=== PATIENT | male | born 1985 | race Caucasian/White ===

== ENCOUNTER 2017-03-17 17:56 | Emergency (ER) | payer SELFPAY ==
[2017-03-17 18:01] VITALS: BP 147/75; PULSE 51; TEMP 97.8; BMI 28.1
[2017-03-17] MEDS ORDERED: IBUPROFEN 600 MG TABLET (FP) PO ONE (19:01)
--- NOTE | 2017-03-17 19:01 | PDOC ---
History of Present Illness - General Chief Complaint: Pain Stated Complaint: PAIN Time Seen by Provider: 03/17/17 18:42 History Source: Patient Exam Limitations: No Limitations - History of Present Illness Initial Comments: 03/17/17 18:56 31 yr male no medical history with c/o pain to the left side of chest after getting hit to the area with a soccer ball 2 days ago. Pt denies getting knocked down , no loc. Pt did not take any meds for pain. Pt states pain is worse with moving his trunk. Occurred: reports: other (2 days ago ) Pain Location: reports: chest (left side) Loss of Consciousness: no loss of consciousness Past History - Past Medical History Allergies/Adverse Reactions: Allergies Allergy/AdvReac Type Severity Reaction Status Date / Time No Known Allergies Allergy Verified 03/17/17 17:58 Home Medications: Ambulatory Orders No Home Medications 0 dose .ROUTE UTDICT 05/22/12 Ibuprofen [Motrin -] 800 mg PO TID #30 tablet 07/26/15 Ibuprofen 800 mg PO TID PRN #20 tablet 03/17/17 Other medical history: NONE - Psycho/Social/Smoking Cessation Hx Anxiety: No Suicidal Ideation: No Smoking Status: No Smoking History: Never smoked Have you smoked in the past 12 months: No Number of Cigarettes Smoked Daily: 0 Information on smoking cessation initiated: No Hx Alcohol Use: No Drug/Substance Use Hx: No Substance Use Type: None Trauma Specific PMHX - Complaint Specific PMHX Arthritis: No Back Injury: No Neck Injury: No Hx Sacro Iliac Joint Dysfunction: No Review of Systems - Review of Systems Able to Perform ROS?: Yes Is the patient limited Northern Irish proficient: No Constitutional: No: Symptoms Reported HEENTM: No: Symptoms Reported Respiratory: No: Symptoms reported Cardiac (ROS): Yes: See HPI. No: Symptoms Reported ABD/GI: No: Symptoms Reported Musculoskeletal: Yes: Symptoms Reported *Physical Exam - Vital Signs Last Vital Signs Temp Pulse Resp BP Pulse Ox 97.8 F 51 L 18 147/75 100 03/17/17 17:59 03/17/17 17:59 03/17/17 17:59 03/17/17 17:59 03/17/17 17:59 - Physical Exam General Appearance: Yes: Nourished, Appropriately Dressed HEENT: positive: EOMI, OFELIA, Normal ENT Inspection, Normal Voice, Pharynx Normal Neck: positive: Supple. negative: Tender Respiratory/Chest: positive: Chest Tender (ttp left anterior chest wall ), Lungs Clear, Normal Breath Sounds. negative: Decreased Breath Sounds, Crackles , Rales Cardiovascular: positive: Regular Rhythm, Regular Rate Musculoskeletal: positive: Normal Inspection Extremity: positive: Normal Capillary Refill, Normal Inspection, Normal Range of Motion Integumentary: positive: Normal Color, Dry, Warm. negative: Swelling, Ecchymosis, Bruising Neurologic: positive: cuffing machine operator II-XII NML intact, Fully Oriented, Alert, Normal Mood/ Affect, Normal Response, Motor Strength 5/5 Heart Score/ECG Review - ECG Intrepretation Rhythm: Regular Rhythm (NSR signed by ER attending dya bustamante) ED Treatment Course - RADIOLOGY Radiology Studies Ordered: Category Date Time Status CHEST PA & LAT [RAD] Stat Radiology 03/17/17 18:49 Ordered Medical Decision Making - Medical Decision Making 03/17/17 19:00 cc: chest wall trauma 2 days ago no SOB vitals stable EKG done NSR pain is reproducable to touch and with movement will get CXR, motrin for pain 03/17/17 19:47 CXR is normal, pt states the pain has resolved after motrin . will dc home with naprosyn for pain strict follow up in 48hrs with PMD . *DC/Admit/Observation/Transfer Diagnosis at time of Disposition: Contusion, chest wall Qualifiers: Encounter type: initial encounter Laterality: left Qualified Code(s): S20.212A - Contusion of left front wall of thorax, initial encounter - Discharge Dispostion Disposition: HOME Condition at time of disposition: Good - Prescriptions Prescriptions: Ibuprofen 800 mg PO TID PRN #20 tablet PRN Reason: Pain - Referrals Referrals: [facility] [Provider Group] - Patient Instructions Additional Instructions: apply warm compresses to the area of pain every 3hrs for 15-20 minutes take ibuprofen 600-800mg every 6hrs for pain follow with your doctor in 48hrs return to ER for any shortness of breath, chest pain trouble breathing or any other concerns Aplique compresas calientes en el azam de dolor cada 3 h nazario 15-20 minutos [place] ibuprofeno 600-800mg cada 6 horas para el dolor Siga con villegas mdico en 48 horas Regrese a urgencias por cualquier dificultad para respirar, dolor en el pecho dificultad para respirar o cualquier otra preocupacin
[2017-03-17] MEDS ORDERED: IBUPROFEN 400 MG TABLET (FP) PO ONE (19:06)
--- NOTE | 2017-03-18 13:03 | EKG ---
Test Reason : Blood Pressure : / mmHG Vent. Rate : 055 BPM Atrial Rate : 055 BPM P-R Int : 174 ms QRS Dur : 090 ms QT Int : 440 ms P-R-T Axes : 018 063 037 degrees QTc Int : 420 ms SINUS BRADYCARDIA OTHERWISE NORMAL ECG NO PREVIOUS ECGS AVAILABLE REPEAT EKG IF CLINICALLY INDICATED Confirmed by DAYANA TAYLOR MD ([id number]) on 03/18/2017 1:03:01 PM Referred By: Confirmed By:DAYANA TAYLOR MD
== END 2017-03-17 20:04 | disposition home or self-care (01) ==
LOC: JERFT 17:56
DX: S20.212A Contusion of left front wall of thorax, initial encounter (principal); W21.02XA Struck by soccer ball, initial encounter; Y93.66 Activity, soccer; Y92.89 Other specified places as the place of occurrence of the external cause
CPT/HCPCS: 71020-TC; 93005; 93010; 99281-25

== ENCOUNTER 2018-10-10 23:51 | Emergency (ER) | payer SELFPAY ==
[2018-10-11 00:05] VITALS: BP 161/90; PULSE 96; TEMP 98.3; BMI 29.8
[2018-10-11] MEDS ORDERED: LIDOCAINE HCL 2% (20ML MULTI-DOSE VIAL) NR ONE (01:15)
[2018-10-11] MEDS ORDERED: CEFAZOLIN 1 GM/D5W 1 GM/50 ML BAG IVPB ONE (02:45)
[2018-10-11] MEDS ORDERED: CEFAZOLIN 1 GM/D5W 1 GM/50 ML BAG ONE (03:06)
--- NOTE | 2018-10-11 03:09 | PDOC ---
History of Present Illness - General Chief Complaint: Laceration Stated Complaint: INJURY TO MOUTH Time Seen by Provider: 10/11/18 00:11 History Source: Patient Exam Limitations: No Limitations - History of Present Illness Initial Comments: 10/11/18 03:04 33-year-old male presents to the emergency department with his complaining of an inner lip laceration after getting elbow while playing soccer 3-4 hours ago. Patient denies loss of consciousness, headache, dizziness, lightheadedness , nausea/vomiting, fever/chills, facial pains, dental pain, neck pain/stiffness , back pains, extremity numbness or tingling sensation. Patient states he applied direct pressure immediately after his injury. Patient states mild bleeding. Tetanus updated last year. Patient denies any dental pain Past History - Past Medical History Allergies/Adverse Reactions: Allergies Allergy/AdvReac Type Severity Reaction Status Date / Time No Known Allergies Allergy Verified 03/17/17 17:58 Home Medications: Ambulatory Orders No Home Medications 0 dose .ROUTE UTDICT 05/22/12 Ibuprofen [Motrin -] 800 mg PO TID #30 tablet 07/26/15 Ibuprofen 800 mg PO TID PRN #20 tablet 03/17/17 - Suicide/Smoking/Psychosocial Hx Smoking Status: No Smoking History: Unknown if ever smoked Have you smoked in the past 12 months: No Number of Cigarettes Smoked Daily: 0 Hx Alcohol Use: No Drug/Substance Use Hx: No Substance Use Type: None Review of Systems - Review of Systems Able to Perform ROS?: Yes Comments:: 10/11/18 03:05 CONSTITUTIONAL: Absent: fever, chills, diaphoresis, generalized weakness, malaise, loss of appetite HEENT: Inner lower lip lac Absent: rhinorrhea, nasal congestion, throat pain, throat swelling, difficulty swallowing, mouth swelling, ear pain, eye pain, visual Changes CARDIOVASCULAR: Absent: chest pain, loss of consciousness, palpitations, irregular heart rate, peripheral edema RESPIRATORY: Absent: cough, shortness of breath, dyspnea with exertion, orthopnea, wheezing, stridor, hemoptysis GASTROINTESTINAL: Absent: abdominal pain, abdominal distension, nausea, vomiting, diarrhea, constipation, melena, hematochezia GENITOURINARY: Absent: dysuria, frequency, urgency, hesitancy, hematuria, flank pain, genital pain MUSCULOSKELETAL: Absent: myalgia, arthralgia, joint swelling SKIN: Absent: rash, itching, pallor HEMATOLOGIC/IMMUNOLOGIC: Absent: easy bleeding, easy bruising, lymphadenopathy, frequent infections ENDOCRINE: Absent: unexplained weight gain, unexplained weight loss, heat intolerance, cold intolerance NEUROLOGIC: Absent: headache, focal weakness or paresthesias, dizziness, unsteady gait, seizure, mental status changes, bladder or bowel incontinence PSYCHIATRIC: Absent: anxiety, depression, suicidal or homicidal ideation, hallucinations. Is the patient limited Gabonese proficient: No *Physical Exam - Vital Signs Last Vital Signs Temp Pulse Resp BP Pulse Ox 98.3 F 96 H 20 161/90 98 10/11/18 00:01 10/11/18 00:01 10/11/18 00:01 10/11/18 00:01 10/11/18 00:01 - Physical Exam Comments: 10/11/18 03:05 GENERAL: Well developed, well nourished. Awake and alert. No acute distress. HEENT: Upper and lower teeth palpated without pain/percussion without pain Inner lower lip lac 4cm jagged stellar lip lac/full thickness .05cm outer region just 3cm inferior to the vermilion border Normocephalic, atraumatic. PERRLA, EOMI. No conjunctival pallor. Sclera are non- icteric. Moist mucous membranes. Oropharynx is clear. NECK: Supple. Full ROM. No JVD. Carotid pulses 2+ and symmetric, without bruits. No thyromegaly. No lymphadenopathy. CARDIOVASCULAR: Regular rate and rhythm. No murmurs, rubs, or gallops. Distal pulses are 2+ and symmetric. PULMONARY: No evidence of respiratory distress. Lungs clear to auscultation bilaterally. No wheezing, rales or rhonchi. ABDOMINAL: Soft. Non-tender. Non-distended. No rebound or guarding. No organomegaly. Normoactive bowel sounds. MUSCULOSKELETAL Normal range of motion at all joints. No bony deformities or tenderness. No CVA tenderness. EXTREMITIES: No cyanosis. No clubbing. No edema. No calf tenderness. SKIN: Warm and dry. Normal capillary refill. No rashes. No jaundice. NEUROLOGICAL: Alert, awake, appropriate. Cranial nerves 2-12 intact. No deficits to light touch and temperature in face, upper extremities and lower extremities. No motor deficits in the in face, upper extremities and lower extremities. Normoreflexic in the upper and lower extremities. Normal speech. Toes are down- going bilaterally. Gait is normal without ataxia. PSYCHIATRIC: Cooperative. Good eye contact. Appropriate mood and affect. Procedure: Inner lower lip lac 4cm jagged stellar lip lac/full thickness betadine prep 5cc 1% lidocaine NS irrigation (8) 3.0 chromic gut simple interrupted .05cm outer region just 3cm inferior to the vermilion border Betadine prep 1.5 mL 1% lidocaine Copious normal saline irrigation (5.0 nylon) Bacitracin bandair 10/11/18 03:08 Moderate Sedation - Procedure Monitoring Vital Signs: Procedure Monitoring Vital Signs Temperature 98.3 F 10/11/18 00:01 Pulse Rate 96 H 10/11/18 00:01 Respiratory Rate 20 10/11/18 00:01 Blood Pressure 161/90 10/11/18 00:01 O2 Sat by Pulse Oximetry (%) 98 10/11/18 00:01 *DC/Admit/Observation/Transfer Diagnosis at time of Disposition: Laceration of lip, complicated Qualifiers: Encounter type: initial encounter Qualified Code(s): S01.511A - Laceration without foreign body of lip, initial encounter - Discharge Dispostion Disposition: HOME Condition at time of disposition: Stable Decision to Admit order: No - Referrals Referrals: Vj Butler MD [Staff Physician] - - Patient Instructions Printed Discharge Instructions: DI for Laceration Repair Additional Instructions: Keep the incision clean and dry for 24 hours. After 24 hours, you may allow the soap and water to rinse off your incision. Avoid direct pressure of the water to the incision. Pat the incision dry with a clean clothe. Apply a small amount of bacitracin onto the incision. Cover the incision loosely with a bandaid. Take tylenol/motrin as needed for pain. Follow up with your physician or the ER in 48 hours for a wound check. Return to the ER if you notice red streaks, increase redness/swelling/severe pain to the incision. It is important that you do not use a straw An infection will cause increase redness, swelling, pain, drainage. If this is the case, your to report directly to the emergency department. Mantenga la incisin limpia y seca nazario 24 horas. Despus de 24 horas, puede permitir que el jabn y el agua enjuagues la incisin. Evite la presin directa del agua a la incisin. Seque la incisin con un clavo limpio. Aplicar lee pequea cantidad de bacitracina sobre la incisin. Cubra la incisin libremente con un bandaid. Amber Tylenol/Motrin segn sea necesario para el dolor. Seguimiento con villegas mdico o el ER en 48 horas para un chequeo de la herida. Regrese a la ER si observa cleve reese, aumente el enrojecimiento/hinchazn/ dolor mell a la incisin. Es importante que no uses lee pajita Lee infeccin causar aumento de enrojecimiento, hinchazn, dolor, drenaje. Si alex es el paris, villegas para informar directamente al Departamento de emergencias. Print Language: VIETNAMESE - Post Discharge Activity
== END 2018-10-11 03:21 | disposition home or self-care (01) ==
LOC: JER 23:51
PROC: 3E03329 Introduction of Other Anti-infective into Peripheral Vein, Percutaneous Approach (ICD-10-PCS; principal; 2018-10-10)
PROC: 0CQ1XZZ Repair Lower Lip, External Approach (ICD-10-PCS; 2018-10-10)
DX: S01.511A Laceration without foreign body of lip, initial encounter (principal); W50.0XXA Accidental hit or strike by another person, initial encounter; Y93.66 Activity, soccer; Y92.322 Soccer field as the place of occurrence of the external cause; Y99.8 Other external cause status
CPT/HCPCS: 99283-25

== ENCOUNTER 2018-10-13 10:18 | Emergency (ER) | payer SELFPAY ==
[2018-10-13 10:45] VITALS: BP 132/79; PULSE 65; TEMP 98.7; BMI 29.0
--- NOTE | 2018-10-13 11:22 | PDOC ---
History of Present Illness - General Chief Complaint: Wound Stated Complaint: STITCHES REMOVAL Time Seen by Provider: 10/13/18 11:07 - History of Present Illness Initial Comments: 10/13/18 11:17 33-year-old male presents for evaluation of a wound check on his lower lip from sutures that were placed 2 days ago. He's been on antibiotics and has been feeling better he has minimal discomfort around the area of his lower lip with the wound was sutured. Past History - Past Medical History Allergies/Adverse Reactions: Allergies Allergy/AdvReac Type Severity Reaction Status Date / Time No Known Allergies Allergy Verified 10/11/18 03:11 Home Medications: Ambulatory Orders Amoxicillin/Potassium Clav [Augmentin 875-125 Tablet] 1 each PO BID #10 tablet 10/11/18 COPD: No - Immunization History Immunization Up to Date: Yes - Suicide/Smoking/Psychosocial Hx Smoking Status: No Smoking History: Never smoked Have you smoked in the past 12 months: No Number of Cigarettes Smoked Daily: 0 Hx Alcohol Use: No Drug/Substance Use Hx: No Substance Use Type: None Review of Systems - Review of Systems Constitutional: Yes: See HPI. No: Fever *Physical Exam - Vital Signs Last Vital Signs Temp Pulse Resp BP Pulse Ox 98.7 F 65 14 132/79 99 10/13/18 10:42 10/13/18 10:42 10/13/18 10:42 10/13/18 10:42 10/13/18 10:42 - Physical Exam Comments: 10/13/18 11:18 Lower lip is swollen. Skin color and temperature are normal. Absorbable sutures are in place about the mucosa on the inner aspect of the lower lip. No indication of infection. Moderate Sedation - Procedure Monitoring Vital Signs: Procedure Monitoring Vital Signs Temperature 98.7 F 10/13/18 10:42 Pulse Rate 65 10/13/18 10:42 Respiratory Rate 14 10/13/18 10:42 Blood Pressure 132/79 10/13/18 10:42 O2 Sat by Pulse Oximetry (%) 99 10/13/18 10:42 Medical Decision Making - Medical Decision Making 10/13/18 11:19 No ill sequelae from suture placement wound looks good besides mild swelling. Patient is not in any discomfort. He can continue the Augmentin he was placed on and follow-up with his primary care physician. Sutures are absorbable and they do not need to be removed. *DC/Admit/Observation/Transfer Diagnosis at time of Disposition: Visit for wound check - Discharge Dispostion Disposition: HOME Condition at time of disposition: Stable Decision to Admit order: No - Referrals Referrals: Kalin Garcia MD [Staff Physician] - - Patient Instructions Additional Instructions: Return to the emergency room for worsening symptoms. Please follow-up with plastic surgery in one to 2 days for further evaluation and treatment options. Continue the antibiotics as directed. - Post Discharge Activity
== END 2018-10-13 11:29 | disposition home or self-care (01) ==
LOC: JERFT 10:18
DX: Z48.817 Encounter for surgical aftercare following surgery on the skin and subcutaneous tissue (principal)
CPT/HCPCS: 99281-25

== ENCOUNTER 2020-10-25 13:34 | Emergency (ER) | payer OTHER ==
[2020-10-25 13:45] VITALS: BMI 29.0
[2020-10-25] MEDS ORDERED: SODIUM CHLORIDE 1,000 ML IV STA (15:07)
[2020-10-25] MEDS ORDERED: ACETAMINOPHEN 1000 MG/100 ML VIAL (NON FORMULARY) IVPB ONE (15:07)
[2020-10-25] MEDS ORDERED: ACETAMINOPHEN INJECTION 100 ML IVPB ONE (15:29)
[2020-10-25 15:44] LABS: BASO % 1.1 % (0-2.0); HEMATOCRIT 47.4 % (35.4-49); HEMOGLOBIN 16.3 GM/dL (11.7-16.9); LYMPH % 31.1 % (8-40); MCH 29.4 pg (25.7-33.7); MCHC 34.4 g/dl (32.0-35.9); MEAN CELL VOLUME 85.4 fl (80-96); MEAN PLT VOLUME 8.1 fl (7.5-11.1); MONO % 8.6 % (3.8-10.2); NEUT % 57.2 % (42.8-82.8); PLATELET COUNT 289 K/MM3 (134-434); RBC 5.55 M/mm3 (4.00-5.60); RDW 14.3 % (11.9-15.9); WHITE BLOOD COUNT 6.9 K/mm3 (4.0-10.0)
[2020-10-25 16:07] LABS: POTASSIUM 4.2 mmol/L (3.5-5.1)
[2020-10-25 16:10] LABS: CALCIUM 9.2 mg/dL (8.5-10.1)
[2020-10-25 16:11] LABS: ALBUMIN 4.2 g/dl (3.4-5.0)
[2020-10-25 16:16] LABS: BILIRUBIN,TOTAL 0.8 mg/dL (0.2-1); TOT PROT 7.6 g/dl (6.4-8.2)
[2020-10-25 16:28] LABS: PH,URINE 5.5 (5.0-8.0); URINE APPEARANCE CLEAR; URINE BILIRUBIN NEGATIVE (NEGATIVE); URINE COLOR YELLOW; URINE GLUCOSE (UA) NEGATIVE (NEGATIVE); URINE KETONE NEGATIVE (NEGATIVE); URINE LEUK ESTERASE NEGATIVE (NEGATIVE); URINE NITRITE NEGATIVE (NEGATIVE); URINE PROTEIN NEGATIVE (NEGATIVE); URINE UROBILINOGEN 0.2 mg/dL (0.2-1.0)
[2020-10-25 17:53] VITALS: BP 124/71; PULSE 56; TEMP 98.7
[2020-10-25] MEDS ORDERED: HEPARIN NA (PORCINE) 5,000 UNITS/ML 1ML VIAL ONE (18:24)
[2020-10-25] MEDS ORDERED: HEPARIN INFUSION - 25,000 UNITS/500 ML INFUS.BAG IVPB ONE (18:25)
== END 2020-10-25 18:30 | disposition home or self-care (01) ==
LOC: JER 13:34
PROC: 3E0333Z Introduction of Anti-inflammatory into Peripheral Vein, Percutaneous Approach (ICD-10-PCS; principal; 2020-10-25)
PROC: 3E033GC Introduction of Other Therapeutic Substance into Peripheral Vein, Percutaneous Approach (ICD-10-PCS; 2020-10-25)
PROC: 3E0337Z Introduction of Electrolytic and Water Balance Substance into Peripheral Vein, Percutaneous Approach (ICD-10-PCS; 2020-10-25)
DX: N30.00 Acute cystitis without hematuria (principal)
CPT/HCPCS: 36415; 74176-TC; 80053; 81003; 85025; 87086; 87491; 87591; 99284-25; J0131

== ENCOUNTER 2022-02-14 13:58 | Emergency (ER) | payer OTHER ==
[2022-02-14 14:05] VITALS: BP 127/72; PULSE 59; TEMP 97.7; BMI 29.0
[2022-02-14] MEDS ORDERED: predniSONE 20 MG TABLET (UD) PO ONE (14:45)
[2022-02-14] MEDS ORDERED: predniSONE 20 MG TABLET (UD) ONE (14:46)
== END 2022-02-14 14:51 | disposition home or self-care (01) ==
LOC: JERFT 13:58
DX: L23.7 Allergic contact dermatitis due to plants, except food (principal)
CPT/HCPCS: 99284-25

== ENCOUNTER 2023-05-01 23:34 | Emergency (ER) | payer OTHER ==
[2023-05-01 23:42] VITALS: BP 131/54; PULSE 62; RESP 18; TEMP 97.5; BMI 32.3
[2023-05-02] MEDS ORDERED: predniSONE 20 MG TABLET (UD) PO ONE (00:24)
[2023-05-02] MEDS ORDERED: LORATADINE 10 MG TABLET PO ONE (00:24)
[2023-05-02] MEDS ORDERED: FAMOTIDINE 20 MG TABLET PO ONE (00:24)
[2023-05-02] MEDS ORDERED: LORATADINE 10 MG TABLET ONE (01:15)
[2023-05-02] MEDS ORDERED: FAMOTIDINE 20 MG TABLET ONE (01:15)
[2023-05-02] MEDS ORDERED: FAMOTIDINE 10 MG TABLET ONE (01:15)
[2023-05-02] MEDS ORDERED: predniSONE 20 MG TABLET (UD) ONE (01:18)
== END 2023-05-02 01:58 | disposition home or self-care (01) ==
LOC: JER 23:34
DX: T78.40XA Allergy, unspecified, initial encounter (principal); R21 Rash and other nonspecific skin eruption; L50.9 Urticaria, unspecified; L29.9 Pruritus, unspecified
CPT/HCPCS: 99283-25

== ENCOUNTER 2023-05-02 19:59 | Emergency (ER) | payer OTHER ==
[2023-05-02 20:05] VITALS: BP 159/94; PULSE 85; RESP 20; TEMP 97.6; BMI 32.3
== END 2023-05-02 22:53 | disposition home or self-care (01) ==
LOC: JER 19:59 → JERFT 19:59
DX: L29.9 Pruritus, unspecified (principal); R11.10 Vomiting, unspecified; L50.0 Allergic urticaria
CPT/HCPCS: 99282-25